=== PATIENT | male | born 1965 | race American Indian/Alaskan Native ===

== ENCOUNTER 2023-05-23 04:00 | Emergency (ER) | payer MEDICAID ==
[2023-05-23] MEDS ORDERED: Ondansetron 4 MG/2 ML SDV IVPUSH ONE (04:04)
[2023-05-23] MEDS ORDERED: Sodium Chloride 0.9% 10 ML Syringe FLUSH PRN (04:04)
[2023-05-23] MEDS ORDERED: Ketorolac 30 MG/ML SDV IVPUSH ONE (04:05)
[2023-05-23 05:08] LABS: INFLUENZA A NAA NEGATIVE (NEGATIVE); INFLUENZA B NAA NEGATIVE (NEGATIVE)
[2023-05-23 05:10] LABS: CORONAVIRUS COVID-19 NAA POSITIVE (NEGATIVE)
== END 2023-05-23 05:27 | disposition home or self-care (01) ==
LOC: MERGE 04:00 → DL.ED 04:00
DX: U07.1 COVID-19 (principal); I10 Essential (primary) hypertension; Z79.82 Long term (current) use of aspirin; Z79.899 Other long term (current) drug therapy
CPT/HCPCS: 0240U; 96374; 96375; 99284; J1885; J2405; 99283; J3490